=== PATIENT | female | born 1980 | race African-American/Black ===

== ENCOUNTER → 2017-02-21 | Outpatient (CLI) | payer BC ==
[~2017-02-21] MED LIST: NORCO 5-325 TA1 EACH PO
== END ==
LOC: RAD 11:48
DX: N64.52 Nipple discharge (principal)

== ENCOUNTER → 2018-10-15 | Outpatient (CLI) | payer BC | LOC: RAD 14:20 | DX: Z12.31 Encounter for screening mammogram for malignant neoplasm of breast (principal) ==

== ENCOUNTER → 2019-10-20 | Outpatient (CLI) | payer BC | LOC: BC 08:15 | DX: Z12.31 Encounter for screening mammogram for malignant neoplasm of breast (principal) ==

== ENCOUNTER → 2021-07-19 | Outpatient (CLI) | payer BC | LOC: ULTRA 14:03 | PROVIDERS: ATTEND Nurse Practitioner | DX: D25.9 Leiomyoma of uterus, unspecified (principal); N92.5 Other specified irregular menstruation ==

== ENCOUNTER → 2021-08-23 | Outpatient (CLI) | payer BC | LOC: BC 14:34 | PROVIDERS: ATTEND Nurse Practitioner | DX: Z12.31 Encounter for screening mammogram for malignant neoplasm of breast (principal) ==

== ENCOUNTER → 2021-08-25 | Outpatient (CLI) | payer BC | LOC: ULTRA 13:59 | PROVIDERS: ATTEND Nurse Practitioner | DX: N63.10 Unspecified lump in the right breast, unspecified quadrant (principal) ==